=== PATIENT | female | born 1985 | race Caucasian/White ===

== ENCOUNTER 2017-08-18 16:53 | Emergency (ER) | payer SELFPAY ==
[~2017-08-18] VITALS: Ht 172.7 cm; Wt 75.5 kg
[2017-08-18 17:01] VITALS: BP 126/78; PULSE 97; RESP 17; TEMP 98.9; O2SAT 98
[2017-08-18] MEDS ORDERED: IBUP800T23 PO (17:37)
[2017-08-18] MEDS ORDERED: TYLETAB34 PO (17:37)
--- NOTE | 2017-08-18 18:11 | PD ---
HPI Chief Complaint: Pain: Acute or Chronic Time Seen by Provider: 18:12 Travel History International Travel<30 days: No Contact w/Intl Traveler<30days: No Traveled to known affect area: No History of Present Illness HPI 31-year-old female here with chief complaint of right shoulder pain 2 days. Patient reports 2 days ago she fell from a ladder and attempted to catch herself dislocating the right shoulder. She reports the shoulder was reduced at a local hospital in [place]. She relocated to [place] since the injury. She is reporting pain in the right shoulder since the injury. She does not endorse worsening pain she reports persistent pain since the injury. She denies paresthesia or weakness in the extremity. She is wearing a sling. PFS Past Medical History Medical History: Denies Significant Hx Tetanus Vaccination: < 5 Years Influenza Vaccination: Yes ?: Not LMP: 2 WEEKS AGO Tubal Ligation: Yes Past Surgical History Section: Yes Social History Alcohol Use: No Tobacco Use: Yes (1 PPD) Substance Use: No Allergies-Medications (Allergen,Severity, Reaction): Coded Allergies: Penicillins (Verified Allergy, Severe, Anaphylaxis, 08/19/17) Sulfa (Sulfonamide Antibiotics) (Verified Allergy, Severe, Anaphylaxis, ) Reported Meds & Prescriptions Reported Meds & Active Scripts Active Robaxin (Methocarbamol) 500 Mg Tab 500 Mg PO TID Reported Ibuprofen 800 Mg Tab 800 Mg PO Q8H PRN Tylenol-Codeine #3 (Acetaminophen-Codeine) 300-30 mg Tab 1 Tab PO Q4H PRN Review of Systems Except as stated in HPI: all other systems reviewed are Neg Physical Exam Narrative GENERAL: alert well appearing female in no acute distress. SKIN: Warm and dry. HEAD: Normocephalic. EYES: No scleral icterus. No injection or drainage. NECK: Supple, trachea midline. No JVD or lymphadenopathy. CARDIOVASCULAR: Regular rate and rhythm without murmurs, gallops, or rubs. RESPIRATORY: Breath sounds equal bilaterally. No accessory muscle use. GASTROINTESTINAL: Abdomen soft, non-tender, nondistended. MUSCULOSKELETAL: No cyanosis, or edema. RUE: right arm in sling. tenderness to the anterior shoulder. limited ROM due to pain. Normal sensation. 2 + distal pulses. BACK: Nontender without obvious deformity. No CVA tenderness. TTP right trapezius muscle. Data Data Last Documented VS Orders Orders Ketorolac Inj (Toradol Inj) (08/18/17 18:15) Orphenadrine Inj (Norflex Inj) (08/18/17 18:15) MDM Medical Decision Making Medical Screen Exam Complete: Yes Emergency Medical Condition: Yes Differential Diagnosis SHOULDER PAIN, ROTATOR CUFF INJURY, SHOULDER STRAIN/SPRAIN, SHOULDER DISLOCATION Narrative Course 31-year-old female here with chief complaint of right shoulder pain 2 days. Patient reports 2 days ago she fell from a ladder and attempted to catch herself dislocating the right shoulder. She reports the shoulder was reduced at a local hospital in [place]. She relocated to [place] since the injury. She is reporting pain in the right shoulder since the injury. She does not endorse worsening pain she reports persistent pain since the injury. She denies paresthesia or weakness a 71. She is in a sling. There is no deformity of the right shoulder. The extremity is neurovascularly intact. She declines x-ray. I do not feel x-ray is warranted because I do not suspect that the extremity is dislocated and she reports negative fracture x-rays 2 days ago. Patient reports spasming in the upper back. Patient is instructed to continue OTC Motrin, Tylenol 3 and muscle relaxer will be added. Return precautions discussed. Patient verbalizes understanding and agrees to plan Diagnosis Primary Impression: Right shoulder pain Qualified Codes: M25.511 - Pain in right shoulder Additional Impression: Shoulder sprain Qualified Codes: S43.401A - Unspecified sprain of right shoulder joint, initial encounter Referrals: Jude De Jesus MD Orthopedist Additional Instructions: Continue the 800 mg Motrin every 6 hours as needed for pain. Use the Robaxin as needed for muscle spasming in the shoulder and back. Continue wearing the sling. Follow-up with the orthopedic doctor. Return to the emergency department if he had new or worsening symptoms. Scripts Methocarbamol (Robaxin) 500 Mg Tab 500 MG PO TID for Muscle Spasm, #15 TAB 0 Refills Prov: Kirti Weston 08/18/17 Disposition: 01 DISCHARGE HOME Condition: Stable Kirti Weston Aug 18, 2017 18:11
[2017-08-18] MEDS ORDERED: ROBA500T PO (18:12)
[2017-08-18] MEDS ORDERED: KETOROLAC TROMETHAMINE 60 MG/2 ML (IM) VIAL IM ONE (18:15)
[2017-08-18] MEDS ORDERED: ORPHENADRINE INJ 60 MG/2 ML AMP IM ONE (18:15)
== END 2017-08-18 18:20 | disposition home or self-care (01) ==
LOC: PHEFT 16:53
DX: S43.401A Unspecified sprain of right shoulder joint, initial encounter (principal); W19.XXXA Unspecified fall, initial encounter
CPT/HCPCS: 96372; 99284; J1885; J2360

== ENCOUNTER 2017-08-19 18:11 | Emergency (ER) | payer SELFPAY ==
[~2017-08-19] VITALS: Ht 172.7 cm; Wt 75.8 kg
[~2017-08-19 18:11] MED LIST: IBUP800T23 PO; ROBA500T PO; TYLETAB34 PO
[2017-08-19 18:29] VITALS: BP 111/89; PULSE 83; RESP 16; TEMP 98.7; O2SAT 99
--- NOTE | 2017-08-19 19:52 | RADRPT ---
EXAM DATE/TIME: 08/19/2017 19:17 [facility] COMPARISON: No previous studies available for comparison. INDICATIONS : Right shoulder pain post fall. MEDICAL HISTORY : None. SURGICAL HISTORY : None. ENCOUNTER: Initial ACUITY: 1 day PAIN SCORE: 10/10 LOCATION: Right upper extremity FINDINGS: Two view examination of the right shoulder demonstrates no evidence of fracture or dislocation. The glenohumeral and acromioclavicular joints are maintained. Bony mineralization is normal. CONCLUSION: Unremarkable limited examination of the right shoulder. Baltazar Leon MD on August 19, 2017 at 19:50 Board Certified Radiologist. This report was verified electronically.
--- NOTE | 2017-08-19 20:11 | PD ---
HPI . Right shoulder pain Chief Complaint: Musculoskeletal Complaint Time Seen by Provider: 18:35 Travel History International Travel<30 days: No Contact w/Intl Traveler<30days: No Traveled to known affect area: No History of Present Illness HPI 31-year-old female presents to the emergency department with her for evaluation of right shoulder pain. Patient has sustained an injury to the right shoulder several weeks ago when she was in [place]. Patient was standing on a ladder and fell and grabbed onto an object to refrain from falling. When she grabbed onto the object her shoulder was dislocated. Patient was seen here last night for the same complaint. She says the pain is so severe she can't eat or sleep. Patient does have an appointment to follow up with an orthopedic surgeon next Tuesday. Patient needs medication to patch her through until her appointment. Patient does have humeral head tenderness to palpation. The right hand is neurovascularly intact. Patient says she can't move her right arm due to the pain. Patient is using a sling throughout the day to try to avoid movement that will irritated. Patient does state she takes her arm out of the sling at night to reduce the risk of joint stiffening. Patient denies any fevers, chills, malaise, abdominal pain, nausea, vomiting, diarrhea. Patient has no other major medical history. Patient does not take any medications daily. PFSH Past Medical History Medical History: Denies Significant Hx Diminished Hearing: No Immunizations Current: Yes Tetanus Vaccination: < 5 Years Influenza Vaccination: Yes ?: Not LMP: 08/11/17 Tubal Ligation: Yes Past Surgical History Section: Yes Social History Alcohol Use: No Tobacco Use: Yes (1 PPD) Substance Use: No Allergies-Medications (Allergen,Severity, Reaction): Coded Allergies: Penicillins (Verified Allergy, Severe, Anaphylaxis, 08/19/17) Sulfa (Sulfonamide Antibiotics) (Verified Allergy, Severe, Anaphylaxis, ) Reported Meds & Prescriptions Reported Meds & Active Scripts Active Robaxin (Methocarbamol) 500 Mg Tab 500 Mg PO TID Reported Ibuprofen 800 Mg Tab 800 Mg PO Q8H PRN Tylenol-Codeine #3 (Acetaminophen-Codeine) 300-30 mg Tab 1 Tab PO Q4H PRN Review of Systems Except as stated in HPI: all other systems reviewed are Neg Physical Exam Narrative GENERAL: Well-nourished, well-developed 31-year-old female patient in no acute distress. Nontoxic appearing SKIN: Focused skin assessment warm/dry. HEAD: Normocephalic. Atraumatic EYES: No scleral icterus. No injection or drainage. NECK: Supple, trachea midline. No JVD or lymphadenopathy. CARDIOVASCULAR: Regular rate and rhythm without murmurs, gallops, or rubs. Radial pulses +2 bilaterally. RESPIRATORY: Breath sounds equal bilaterally. No accessory muscle use. GASTROINTESTINAL: Abdomen soft, non-tender, nondistended. MUSCULOSKELETAL: Right humeral head tenderness to palpation. No ecchymosis or erythema, slightly edematous. BACK: Nontender without obvious deformity. No CVA tenderness. Data Data Last Documented VS Vital Signs Date Time Temp Pulse Resp B/P (MAP) Pulse Ox O2 Delivery O2 Flow Rate FiO2 08/19/17 18:29 98.7 83 16 111/89 (96) 99 Orders Orders Ice/Cold Pack (08/19/17 19:04) Shoulder, Limited(2vws) (08/19/17 19:04) MDM Medical Decision Making Medical Screen Exam Complete: Yes Emergency Medical Condition: Yes Differential Diagnosis Differential diagnoses include ligament strain, shoulder fracture, arm fracture , ligament sprain, contusion, pain exacerbation Narrative Course 31-year-old female presents to the emergency department for evaluation of right shoulder pain. Patient was seen at our facility last night for the same complaint. Patient was discharged home with a muscle relaxer however she said the pain is so severe that she can't eat or sleep. Patient does have her right arm in a sling. An x-ray of the right shoulder was ordered to ensure we had not missed any fractures or secondary dislocation. The x-ray was negative. Based on patient's symptoms, clinical presentation, radiological results, vital sign review and physical exam it is not necessary to admit the patient to the hospital or keep the patient in the emergency department for further evaluation. Patient will be given an IM injection of Toradol discharged home with a prescription for Percocet and instructions to keep her appointment with the orthopedic surgeon on Tuesday. Patient was no longer in the room when I went into area of the test results with her and give her the discharge plan. Diagnosis Primary Impression: Right shoulder pain Qualified Codes: M25.511 - Pain in right shoulder Referrals: Orthopaedic Surgeon Patient Instructions: General Instructions, Shoulder Pain (ED) Additional Instructions: Please return to emergency department if your symptoms return or worsen. Continue to wear the sling. Remove the sling at night to prevent joint stiffening. Follow up with your primary care provider. Keep the appointment on Tuesday with your orthopedic surgeon. Take medications as prescribed. Use caution as they may make you drowsy. Do not drink alcohol or drive while on this medication. Med/Other Pt SpecificInfo: Prescription(s) given Disposition: DISCHARGE HOME Condition: Stable Mil[facility]ro [facility] Aug 19, 2017 20:11
== END 2017-08-19 20:12 | disposition home or self-care (01) ==
LOC: PHEFT 18:11
DX: M25.511 Pain in right shoulder (principal)
CPT/HCPCS: 73030; 99283